=== PATIENT | female | born 1960 | race African-American/Black ===

== ENCOUNTER 2017-12-05 00:11 | Emergency (ER) | payer OTHER ==
[~2017-12-05] VITALS: Ht 157.5 cm; Wt 52.2 kg
[~2017-12-05 00:11] MED LIST: ? B/P MED; CYCLOBENZAPRINE5 MG PO; HYDROCODON-ACE1 EAC7 PO; LORATIDINE 10 M10 M1 PO; NAPROSYN500 MG PO; PREDNISONE 20 M20 M1 PO
[2017-12-05 00:17] VITALS: BP 154/58
[2017-12-05] MEDS ORDERED: KEFLEX500 M1 PO (00:31)
== END 2017-12-05 00:43 | disposition home or self-care (01) ==
LOC: M.ERS 00:11
DX: S61.431A Puncture wound without foreign body of right hand, initial encounter (principal); W22.8XXA Striking against or struck by other objects, initial encounter; Y93.89 Activity, other specified; Y92.89 Other specified places as the place of occurrence of the external cause; Y99.8 Other external cause status